=== PATIENT | female | born 1990 | race Caucasian/White ===

== ENCOUNTER 2020-09-16 03:59 | Emergency (ER) | payer OTHER ==
[2020-09-16] MEDS ORDERED: Naproxen 500 MG TAB ONE (04:27)
== END 2020-09-16 04:34 | disposition home or self-care (01) ==
LOC: NAV ERS 03:59
DX: S93.412A Sprain of calcaneofibular ligament of left ankle, initial encounter (principal); X50.9XXA Other and unspecified overexertion or strenuous movements or postures, initial encounter

== ENCOUNTER 2023-07-17 15:06 | Emergency (ER) | payer OTHER ==
[2023-07-17] MEDS ORDERED: Bacitracin 1 PK ONE ×2 (15:28→16:13)
[2023-07-17] MEDS ORDERED: Boostrix 0.5 ML (Tdap) VIAL (>/=7 yrs of age) ONE (15:28)
== END 2023-07-17 16:08 | disposition home or self-care (01) ==
LOC: NAV ERS 15:06
DX: S61.452A Open bite of left hand, initial encounter (principal); S81.851A Open bite, right lower leg, initial encounter; Z23 Encounter for immunization; W54.0XXA Bitten by dog, initial encounter
CPT/HCPCS: 90471; 90715